=== PATIENT | male | born 1995 | race Hispanic/Latino ===

== ENCOUNTER 2018-03-29 17:51 | Emergency (ER) | payer BC ==
[2018-03-29 17:56] VITALS: O2SAT 98
[2018-03-29 18:35] LABS: BASO % 0.5 % (0.0-2.0); EOS # 0.2 K/uL (0.0-0.7); EOS % 2.7 % (0.0-4.0); HEMOGLOBIN 16.4 g/dL (12.0-18.0); LYMPH # 2.4 K/uL (1.0-4.3); LYMPH % 35.8 % (20.0-40.0); MEAN CELL VOLUME 91.5 fL (80.0-94.0); MEAN CORPUSCULAR HEMOGLOBIN 32.5 pg (27.0-31.0); MEAN CORPUSCULAR HGB CONC 35.5 g/dL (33.0-37.0); MEAN PLATELET VOLUME 8.9 fL (7.2-11.7); MONO # 0.6 K/uL (0.0-0.8); MONO % 8.3 % (0.0-10.0); NEUT # 3.6 K/uL (1.8-7.0); NEUT % 52.7 % (50.0-75.0); NRBC % 0.1 % (0.0-2.0); RBC 5.05 Mil/uL (4.40-5.90); RED CELL DISTRIBUTION WIDTH 12.6 % (11.5-14.5); WHITE BLOOD COUNT 6.8 K/uL (4.8-10.8)
[2018-03-29 18:47] LABS: ALB/GLOB RATIO 2.1 (1.0-2.1); ALT/SGPT 42 U/L (21-72); AST/SGOT 32 U/L (17-59); BLOOD UREA NITROGEN 13 mg/dL (9-20); CALCIUM 9.9 mg/dl (8.6-10.4); GFR NON-AFRICAN AMERICAN > 60; LIPASE 102 U/L (23-300)
[2018-03-29 19:20] LABS: URINE BILIRUBIN NEGATIVE (NEGATIVE); URINE BLOOD NEGATIVE (NEGATIVE); URINE CLARITY Clear (Clear); URINE COLOR Yellow (YELLOW); URINE GLUCOSE (UA) NORMAL (Normal); URINE LEUKOCYTE ESTERASE NEG Leu/uL (Negative); URINE PROTEIN NEGATIVE (NEGATIVE); URINE UROBILINOGEN NORMAL mg/dL (0.2-1.0)
[2018-03-29] MEDS ORDERED: Sodium Chloride 0.9% 1,000 ML IV ONE ×2 (19:20→19:21)
[2018-03-29] MEDS ORDERED: Iohexol 240 (50 ml) PO ONE (19:21)
--- NOTE | 2018-03-29 19:22 | C.PDOC ---
History Of Present Illness 22 y/o male presents to the ED complaining of severe RLQ abdominal pain for the past four days. He was seen at [facility] [place] within the last two days and the reports read negative for appendicitis, however, he was instructed to return to the ED if the pain worses, prompting todays ED visit. The patient complains of experiencing nausea. He denies any vomiting, diarrhea or dysuria. Time Seen by Provider: 03/29/18 19:17 Chief Complaint (Nursing): Abdominal Pain History Per: Patient History/Exam Limitations: no limitations Onset/Duration Of Symptoms: Days Current Symptoms Are (Timing): Still Present Location Of Pain/Discomfort: RLQ Associated Symptoms: denies: Fever, Vomiting, Diarrhea Recent travel outside of the [place]: No Past Medical History Reviewed: Historical Data, Nursing Documentation, Vital Signs Vital Signs: Last Vital Signs Temp 98.7 F 03/29/18 17:53 Pulse 82 03/29/18 17:53 Resp 18 03/29/18 17:53 BP 149/89 03/29/18 17:53 Pulse Ox 98 03/29/18 17:53 - Medical History PMH: No Chronic Diseases Surgical History: No Surg Hx Family History: States: Unknown Family Hx - Social History Hx Alcohol Use: Yes Hx Substance Use: No - Immunization History Hx Tetanus Toxoid Vaccination: No Hx Influenza Vaccination: No Hx Pneumococcal Vaccination: No Review Of Systems Except As Marked, All Systems Reviewed And Found Negative. Constitutional: Negative for: Fever Gastrointestinal: Positive for: Nausea, Abdominal Pain (RLQ). Negative for: Vomiting, Diarrhea Genitourinary: Negative for: Dysuria Physical Exam - Physical Exam Appears: Non-toxic, No Acute Distress Skin: Warm, Dry Head: Atraumatic, Normacephalic Eye(s): bilateral: Normal Inspection, PERRL, EOMI Ear(s): Bilateral: Normal Oral Mucosa: Moist Chest: Symmetrical Cardiovascular: Rhythm Regular, No Murmur Respiratory: Normal Breath Sounds, No Rales, No Rhonchi, No Wheezing Gastrointestinal/Abdominal: Soft, Tenderness (sever tenderness in RLQ), No Guarding, No Rebound Extremity: Normal ROM Extremity: Bilateral: Normal Color And Temperature, Normal ROM Neurological/Psych: Oriented x3, Normal Speech ED Course And Treatment - Laboratory Results Result Diagrams: 03/29/18 18:31 03/29/18 18:31 O2 Sat by Pulse Oximetry: 98 (RA) Pulse Ox Interpretation: Normal - CT Scan/US Abdomen and pelvis Other Rad Studies (CT/US): Read By Radiologist, Radiology Report Reviewed CT/US Interpretation: Impression: 1.3 mm noncalcified nodule in the RLL, not suspicious and does not require a follow up. 2. Fatty Liver. Splenomegaly. 3. Constipation. 4. Enteritis. infectious and inflammatory etiologies are consid ered. Consider consultation with GI service and follow up with upper endoscopy and colonoscopy. Medical Decision Making Medical Decision Making: Impression: 22 y/o male presents to the ED complaining of severe RLQ abdominal pain for the past four days Plan: -CT Abd/ pelvis and IV contrast -CMP -Lipase -IV Fluids -UA Disposition Discussed With Dr.: Mabel Valle Comment: Dr. Rollins notified for consult. Doctor Will See Patient In The: Office Counseled Patient/Family Regarding: Studies Performed, Diagnosis - Disposition Referrals: Mabel Valle MD [Medical Doctor] - César Rollins MD [Staff Provider] - Disposition: HOME/ ROUTINE Disposition Time: 23:44 Condition: STABLE Prescriptions: Ciprofloxacin [Cipro] 1 tab PO BID #14 tab Metronidazole [Flagyl] 250 mg PO TID #20 tablet Instructions: Inflammatory Bowel Disease, Constipation, Adult (DC) Forms: [facility] ([facility]) - POA Present On Arrival: None - Clinical Impression Clinical Impression: Abdominal pain, Enteritis, Constipation - PA / DIRECTOR OF MANUFACTURING OPERATIONS / Resident Statement MD/DO has reviewed & agrees with the documentation as recorded. - Scribe Statement The provider has reviewed the documentation as recorded by the Maria Diblatanya (Mary Lou Manjarrez) Provider Attestation: All medical record entries made by the Pietro were at my direction and personally dictated by me. I have reviewed the chart and agree that the record accurately reflects my personal performance of the history, physical exam, medical decision making, and the department course for this patient. I have also personally directed, reviewed, and agree with the discharge instructions and disposition.
[2018-03-29] MEDS ORDERED: Sodium Chloride 0.9% 1,000 ML ONE ×2 (19:42→20:12)
[2018-03-29] MEDS ORDERED: Iohexol 240 (50 ml) ONE (19:42)
[2018-03-29] MEDS ORDERED: Iohexol 350mg/ml 100 ML ONE (19:45)
[2018-03-29] MEDS ORDERED: Ciprofloxacin 400mg/200ml D5W 400 MG/200 ML BAG IVPB STA (22:20)
[2018-03-29] MEDS ORDERED: metroNIDAZOLE IV 500 mg/100 ml 500 MG/100 ML BAG IVPB SCH (22:30)
[2018-03-29] MEDS ORDERED: Ciprofloxacin 400mg/200ml D5W 400 MG/200 ML BAG IVPB ONE (22:34)
[2018-03-29] MEDS ORDERED: metroNIDAZOLE IV 500 mg/100 ml 500 MG/100 ML BAG IVPB ONE (22:45)
[2018-03-29] MEDS ORDERED: metroNIDAZOLE IV 500 mg/100 ml 500 MG/100 ML BAG ONE (23:28)
[2018-03-29 23:46] VITALS: TEMP 98.5
[2018-03-30 01:04] VITALS: BP 124/79; PULSE 68; RESP 18
--- NOTE | 2018-03-30 07:39 | CT ---
Date of service: 03/29/2018 PROCEDURE: CT Abdomen and Pelvis with intravenous contrast HISTORY: Right lower quadrant abdominal pain COMPARISON: None. TECHNIQUE: Multiple contiguous axial images were performed through the abdomen and pelvis with the use of intravenous contrast. Subsequently, sagittal and coronal reformatted images were obtained. Radiation dose: Total exam DLP = 957 mGy-cm. This CT exam was performed using one or more of the following dose reduction techniques: Automated exposure control, adjustment of the mA and/or kV according to patient size, and/or use of iterative reconstruction technique. FINDINGS: LOWER THORAX: 3 millimeter noncalcified nodule in the right lower lobe of the lung. Three-6 month interval follow-up may be helpful if clinically indicated. LIVER: Diffuse hepatic hypoattenuation compatible with fatty infiltration. GALLBLADDER AND BILE DUCTS: Unremarkable. PANCREAS: Unremarkable. No gross lesion or ductal dilatation. SPLEEN: Splenomegaly measuring up to 14.5 centimeters. ADRENALS: Unremarkable. No mass. KIDNEYS AND URETERS: Unremarkable. No hydronephrosis. No solid mass. VASCULATURE: Unremarkable. No aortic aneurysm. BOWEL: Moderate amount of fecal material is seen throughout the colon compatible with constipation. Thick-walled fluid-filled duodenum and loops of jejunum as well as ileum compatible with enteritis. Infectious and inflammatory etiologies are considered. Consider consultation with GI service and follow-up with upper endoscopy and colonoscopy. APPENDIX: No findings to suggest acute appendicitis. PERITONEUM: Unremarkable. No free fluid. No free air. LYMPH NODES: Unremarkable. No enlarged lymph nodes. BLADDER: Unremarkable. REPRODUCTIVE: Unremarkable. BONES: Degenerative changes in the spine. OTHER FINDINGS: None. IMPRESSION: Fatty infiltration of the liver. Splenomegaly. Moderate amount of fecal material is seen throughout the colon compatible with constipation. Thick-walled fluid-filled duodenum and loops of jejunum as well as ileum compatible with enteritis. Infectious and inflammatory etiologies are considered. Consider consultation with GI service and follow-up with upper endoscopy and colonoscopy. 3 millimeter noncalcified nodule in the right lower lobe of the lung. Three-6 month interval follow-up may be helpful if clinically indicated. These findings were preliminarily reported at 9:56 p.m. on 03/29/[address] Ministerio Leija from [employer].
== END 2018-03-30 01:34 | disposition home or self-care (01) ==
LOC: C.ER 17:51
DX: R10.31 Right lower quadrant pain (principal); K59.00 Constipation, unspecified; K52.9 Noninfective gastroenteritis and colitis, unspecified
CPT/HCPCS: 74177; 80053; 81001; 83690; 85025; 96361; 96365; 96366; 96367; 99285; J0744; J7030; Q9966; Q9967

== ENCOUNTER 2018-06-06 08:38 | Day surgery (SDC) | payer BC ==
[2018-06-05 11:38] VITALS: BMI 31.8
[2018-06-06] MEDS ORDERED: Lactated Ringer's 500 ML IV ONE (10:03)
[2018-06-06] MEDS ORDERED: Propofol 10 mg/ml Inj (20 ML) ONE ×3 (10:06→10:37)
[2018-06-06] MEDS ORDERED: Lidocaine Hydrochloride 5 ML INJ ONE (10:06)
[2018-06-06 11:10] VITALS: TEMP 96.9
[2018-06-06 12:16] VITALS: O2SAT 100
[2018-06-06 12:24] VITALS: BP 130/69; PULSE 61; RESP 14
== END 2018-06-06 11:40 | disposition home or self-care (01) ==
LOC: C.ENDO 08:38
PROVIDERS: ATTEND Internal Medicine Gastroenterology
DX: K22.10 Ulcer of esophagus without bleeding (principal); K64.1 Second degree hemorrhoids; R10.31 Right lower quadrant pain; K44.9 Diaphragmatic hernia without obstruction or gangrene; K29.30 Chronic superficial gastritis without bleeding
CPT/HCPCS: 43239; 45380; 88305; 88312; 88313; 88342; J2704; J3010; J7120